=== PATIENT | female | born 1995 | race Caucasian/White ===

== ENCOUNTER → 2017-02-14 | Emergency (ER) | payer OTHER ==
[~2017-02-14] MED LIST: METOCLOPRAMIDE HCL INJECTION 10 MG/2 ML VIAL IVPUSH ONE; METOCLOPRAMIDE HCL INJECTION 10 MG/2 ML VIAL ONE; SODIUM CHLORIDE 1,000 ML IV STA; SULFAMETHOXAZOLE/TRIMETHOPRIM 800MG/160MG D.S. TABLET PO ONE
[2017-02-14 18:51] VITALS: BMI 22.6
--- NOTE | 2017-02-14 19:51 | PDOC ---
History of Present Illness - General History Source: Patient Exam Limitations: No Limitations - History of Present Illness Initial Comments: 02/14/17 20:03 The patient is a 21 year old female with no significant past medical history who presents to the ED 3 days of diffuse abdominal pain and nausea. Patient denies vomiting or diarrhea. She also has complaints of decreased appetite. Patient is currently on oral contraceptive and reports she recently she was switched from one control to another. Her LMP was 3 days ago. The patient denies fever, chills, cough, SOB, chest pain, and palpitations. The patient denies dysuria, hematuria, urgency, and frequency. Allergies: NKDA Social History: No alcohol, tobacco, or drug use reported. Past Surgical History: None reported PCP: None reported <Yu Borrero - Last Filed: 02/14/17 20:02> - General History Source: Patient <Ralph Gibson - Last Filed: 02/14/17 21:24> - General Chief Complaint: Pain Stated Complaint: PCP SENT/PAIN Time Seen by Provider: 02/14/17 19:48 Past History <Yu Borrero - Last Filed: 02/14/17 20:02> - Past Medical History Psychiatric Problems: Yes (DEPRESSION) - Reproductive History (#): 1 Para: 0 Therapeutic (s) & number: No Spontaneous : 0 - Immunization History Immunization Up to Date: Yes - Psycho/Social/Smoking Cessation Hx Anxiety: No Suicidal Ideation: No Smoking Status: No Smoking History: Former smoker Have you smoked in the past 12 months: Yes Number of Cigarettes Smoked Daily: 1 If you are a former smoker, when did you quit?: 7 DAYS AGO Information on smoking cessation initiated: No 'Breaking Loose' booklet given: 10/27/15 Hx Alcohol Use: No Drug/Substance Use Hx: No Substance Use Type: None <Ralph Gibson - Last Filed: 02/14/17 21:24> - Past Medical History Allergies/Adverse Reactions: Allergies Allergy/AdvReac Type Severity Reaction Status Date / Time No Known Allergies Allergy Verified 02/14/17 18:51 Home Medications: Ambulatory Orders No Home Medications 0 dose .ROUTE UTDICT 09/29/12 Metoclopramide HCl [Reglan -] 10 mg PO TID #30 tablet 04/25/17 Sulfamethoxazole/Trimethoprim [Bactrim *Ds*] 1 tab PO BID #14 tablet 02/14/17 Review of Systems - Review of Systems Able to Perform ROS?: Yes Comments:: 02/14/17 20:03 CONSTITUTIONAL: +decreased appetite Absent: fever, no chills, no fatigue EYES: Absent: visual changes ENT: Absent: ear pain, no sore throat CARDIOVASCULAR: Absent: chest pain, no palpitations RESPIRATORY: Absent: cough, no SOB GI: +diffuse abdominal pain, nausea Absent: no vomiting, no constipation, no diarrhea GENITOURINARY: Absent: dysuria, no frequency, no hematuria MUSCULOSKELETAL: Absent: back pain, no arthralgia, no myalgia SKIN: Absent: rash NEURO: Absent: headache <Yu Borrero - Last Filed: 02/14/17 20:02> *Physical Exam - Vital Signs Last Vital Signs Temp Pulse Resp BP Pulse Ox 98.4 F 82 18 108/64 99 02/14/17 18:48 02/14/17 18:48 02/14/17 18:48 02/14/17 18:48 02/14/17 18:48 - Physical Exam Comments: 02/14/17 20:03 GENERAL: Well-appearing, well-nourished. No apparent distress. HEENT: Normocephalic, atraumatic. PERRL, EOM intact. CARDIOVASCULAR: Normal S1, S2. Regular rate and rhythm. PULMONARY: Clear to auscultation bilaterally. ABDOMEN: Soft, non-distended, non-tender. EXTREMITIES: Normal ROM in all four extremities. No gross deformities. SKIN: Warm, dry. No rash NEUROLOGICAL: No focal neurological deficits. <Yu Borrero - Last Filed: 02/14/17 20:02> - Vital Signs Last Vital Signs Temp Pulse Resp BP Pulse Ox 98.4 F 82 18 108/64 99 02/14/17 18:48 02/14/17 18:48 02/14/17 18:48 02/14/17 18:48 02/14/17 18:48 <Ralph Gibson - Last Filed: 02/14/17 21:24> ED Treatment Course - LABORATORY CBC & Chemistry Diagram: 02/14/17 20:15 02/14/17 20:15 <Ralph Gibson - Last Filed: 02/14/17 21:24> Medical Decision Making - Medical Decision Making 02/14/17 21:22 Dr. Gibson: The scribe's documentation has been prepared under my direction and personally reviewed by me in its entirery. I confirm that the note above accurately reflects all work, treatment, procedures, and medical decision making performed by me. Pt with early UTI. Pt afebrile. Rx Bactrim DS. <Ralph Gibson - Last Filed: 02/14/17 21:24> *DC/Admit/Observation/Transfer - Attestations Scribe Attestion: 02/14/17 20:03 Documentation prepared by Yu oBrrero, acting as medical billing clerk for Ralph Gibson MD <Yu Borrero - Last Filed: 02/14/17 20:02> - Discharge Dispostion Admit: No <Ralph Gibson - Last Filed: 02/14/17 21:24> Diagnosis at time of Disposition: UTI (urinary tract infection) Qualifiers: Urinary tract infection type: site unspecified Hematuria presence: without hematuria Qualified Code(s): N39.0 - Urinary tract infection, site not specified - Discharge Dispostion Disposition: HOME Condition at time of disposition: Stable - Prescriptions Prescriptions: Sulfamethoxazole/Trimethoprim [Bactrim *Ds*] 1 tab PO BID #14 tablet Metoclopramide HCl [Reglan -] 10 mg PO TID #30 tablet - Patient Instructions Printed Discharge Instructions: DI for Urinary Tract Infection (UTI) - Post Discharge Activity Work/School Note: Back to Work
[2017-02-14 20:21] LABS: BASOPHIL 0.5 % (0-2.0); EOSINOPHIL 0.3 % (0-4.5); MCH 28.4 pg (25.7-33.7); MCHC 32.9 g/dl (32.0-36.0); MEAN CELL VOLUME 86.3 fl (80-96); MEAN PLT VOLUME 8.2 fl (7.5-11.1); NEUTROPHILS 69.7 % (42.8-82.8); PLATELET COUNT 250 K/MM3 (134-434); RDW 13.6 % (11.6-15.6); WHITE BLOOD COUNT 9.1 K/mm3 (4.0-10.0)
[2017-02-14 20:35] LABS: URINE APPEARANCE SLCLOUDY; URINE BILIRUBIN NEGATIVE (NEGATIVE); URINE BLOOD NEGATIVE (NEGATIVE); URINE COLOR YELLOW; URINE GLUCOSE (UA) NEGATIVE (NEGATIVE); URINE KETONE NEGATIVE (NEGATIVE); URINE NITRITE NEGATIVE (NEGATIVE); URINE PROTEIN NEGATIVE (NEGATIVE); URINE UROBILINOGEN 4.0 E.U/dl E.U./dl (0.2-1.0)
[2017-02-14 20:42] LABS: URINE LEUK ESTERASE 2+ (NEGATIVE)
[2017-02-14 21:02] LABS: ALBUMIN 3.6 g/dl (3.4-5.0); AMYLASE 69 U/L (25-115); ANION GAP 10 (8-16); BILIRUBIN,TOTAL 0.8 mg/dL (0.2-1.0); CALCIUM 8.4 mg/dL (8.5-10.1); CO2 25 mmol/L (21-32); COCKROFT - GAULT 128.5115; CREATININE 0.6 mg/dL (0.55-1.02); GLUCOSE,RANDOM 85 mg/dL (74-106); MAGNESIUM 2.2 mg/dL (1.8-2.4); SGOT/AST 12 U/L (15-37); SGPT/ALT 17 U/L (12-78)
[2017-02-14 21:03] LABS: ALK PHOS 46 U/L (45-117)
[2017-02-14 21:10] LABS: URINE MUCUS FEW; URINE RBC 2 /hpf (0-3); URINE WBC 19 /hpf (3-5)
[2017-02-14 22:06] VITALS: BP 116/76; PULSE 87; TEMP 98.3
== END | disposition home or self-care (01) ==
LOC: JER 18:48
PROC: 3E033GC Introduction of Other Therapeutic Substance into Peripheral Vein, Percutaneous Approach (ICD-10-PCS; principal; 2017-02-14)
PROC: 3E0337Z Introduction of Electrolytic and Water Balance Substance into Peripheral Vein, Percutaneous Approach (ICD-10-PCS; 2017-02-14)
DX: N39.0 Urinary tract infection, site not specified (principal); F32.9 Major depressive disorder, single episode, unspecified; Z87.891 Personal history of nicotine dependence
CPT/HCPCS: 36415; 80053; 81003; 81015; 82150; 83690; 83735; 84703; 85025; 96361; 96374; 99283-25